=== PATIENT | female | born 1945 | race Caucasian/White ===

== ENCOUNTER 2019-10-17 15:09 | Outpatient (CLI) | payer MEDICARE, MEDICAID, SELFPAY ==
--- NOTE | ~2019-10-17 | CT_ITS ---
EXAMINATION: CT abdomen pelvis wo con DATE: 10/17/2019 16:41 INDICATION: Right-sided abdominal pain TECHNIQUE: Computed tomography (CT) of the abdomen and pelvis was performed without intravenous contr ast. Automated exposure control and iterative reconstruction technique were employed. The dose-length product was 703.21 mGy-cm. COMPARISON: 02/14/2019 FINDINGS: Negligible basilar atelectasis. Heart size is normal. No pericardial or pleural effusion. Liver, gall bladder, spleen, pancreas, bilateral adrenal glands and right kidney are normal. 4 mm nonobstructing stone at the lower pole of the left kidney. Postoperative change of likely prior partial small bowel and partial colonic resections with small bowel anastomosis in the right lower quadrant and rectosigm oid anastomosis in the deep pelvis. Additional postoperative change of prior ventral hernia mesh repa ir. No bowel obstruction. The appendix is not visualized. No pericecal inflammatory change to suggest acute appendicitis. The uterus is not identified and has likely been surgically resected. Bladder co ntinues to extend further towards the posterior right hemipelvis which may be related to prior surger y. No abnormal bladder wall thickening. No free intraperitoneal gas or fluid. No pathologically enlar ged abdominal or pelvic lymphadenopathy. S-shaped thoracolumbar scoliosis with severe spondylosis. Th ere is also severe right-sided and mild to moderate left-sided hip osteoarthritis. Moderate bilateral sacroiliac osteoarthritis. IMPRESSION: 1. No acute intra-abdominal/pelvic process. 2. 4 mm nonobstructing left renal stone. 3. Postoperative changes including likely prior partial colectomy, appendectomy, partial small bowel resection, appendectomy, hysterectomy and ventral hernia repair. Reviewed, dictated and finalized at location A. E SHOW SPECIALIST IMPRESSION: 1. No acute intra-abdominal/pelvic process. 2. 4 mm nonobstructing left renal stone. 3. Postoperative changes including likely prior partial colectomy, appendectomy , partial small bowel resection, appendectomy, hysterectomy and ventral hernia repair.
== END 2019-10-17 15:10 | disposition home or self-care (01) ==
DX: N20.0 Calculus of kidney (principal)
CPT/HCPCS: 74176

== ENCOUNTER 2020-12-14 14:29 | Emergency (ER) | payer MEDICARE, MEDICAID, SELFPAY ==
--- NOTE | ~2020-12-14 | CT_ITS ---
EXAMINATION: CT abdomen pelvis w con DATE: 12/14/2020 16:04 INDICATION: Abdominal pain, nausea and vomiting TECHNIQUE: Computed tomography (CT) of the abdomen and pelvis was performed with 100 cc Omnipaque 350 intravenous contrast. The dose-length product was 1093.67 mGy-cm. Automated exposure control and ite rative reconstruction technique were employed. COMPARISON: CT dated 10/17/2019. FINDINGS: There is dependent atelectasis. Heart size normal. There is a 3 cm hypodense partially cyst ic mass of the pancreatic head the spleen, adrenal glands and right kidney are unremarkable. Gallblad beatrice is present, although distended. There is nonobstructing 3 mm left renal stone. Nonobstructive bow el gas pattern. There are surgical changes consistent with previous colectomy, appendectomy, partial small bowel resection, hysterectomy and ventral hernia repair. Moderate atherosclerosis. No aneurysm. No lymphadenopathy. IMPRESSION: 1. Irregular shaped partially cystic mass measuring up to 3 cm at the pancreatic head. The differenti al diagnosis includes pseudocyst, intraductal papillary mucinous neoplasm (IPMN), mucinous cystic rosalio plasm (MCN), and the less common serous cystadenoma and neuroendocrine tumor. 2: 3 mm nonobstructing left renal stone. Reviewed, dictated and finalized at location A. IMPRESSION: 1. Irregular shaped partially cystic mass measuring up to 3 cm at the pancreati c head. The differential diagnosis includes pseudocyst, intraductal papillary m ucinous neoplasm (IPMN), mucinous cystic neoplasm (MCN), and the less common se ivan cystadenoma and neuroendocrine tumor. 2: 3 mm nonobstructing left renal stone.
[2020-12-14 14:31] VITALS: BP 145/92; PULSE 81; RESP 15; TEMP 36.2; O2SAT 96
--- NOTE | 2020-12-14 15:07 | ED.GENADULT ---
HPI - General Adult General Chief complaint: Nausea/Vomiting/Diarrhea Stated complaint: No Eating for Two Weeks Time Seen by Provider: 12/14/20 14:32 Source: patient Mode of arrival: ambulatory Limitations: no limitations History of Present Illness HPI narrative: Patient presents for evaluation of right abdominal pain, nausea, vomiting, diarrhea for the last 3 weeks. She has remote history of diverticulitis with colon rupture, status post colostomy placement and subsequent takedown. Her bull chain operator is Dr. Martinez with last reported EGD and colonoscopy approximately 2 years ago. She states that pain in the right side of her abdomen is fairly constant, although worse after eating. Pain radiates across her abdomen. Pain is currently 9 out of 10 in severity. She does receive fentanyl patches from pain management and also has underlying fibromyalgia for which she is prescribed Cymbalta. She states immediately after eating she experiences worsening pain. She contacted her primary doctor and went to [facility] approximately a week and a half ago. She states she had a CT abdomen pelvis at that time that was negative for bowel obstruction. She was given a prescription for Zofran which helped her in the emergency department. She has not taken prescription at home because she did not know it was the same medication. She denies any fever, chills. She does report dysuria and decreased urinary output. Her telesales supervisor is Dr Martinez. She states she has not had a bowel movement in the last 2 days but prior to that time she was experiencing diarrhea. Related Data Allergies Allergy/AdvReac Type Severity Reaction Status Date / Time duloxetine Allergy Severe Swelling Verified 12/14/20 15:15 enalapril Allergy Unknown Unknown Verified 12/14/20 15:15 erythromycin base Allergy Unknown Rash Unverified 12/14/20 15:15 Sulfa (Sulfonamide Allergy Unknown Unknown Unverified 12/14/20 15:15 Antibiotics) sulfanilamide Allergy Unknown Unknown Verified 12/14/20 15:15 venlafaxine AdvReac Unknown Other Verified 12/14/20 15:15 Review of Systems Review of Systems: Narrative: CONSTITUTIONAL: Denies fever, chills, or sweats. EYES: Denies visual changes, redness, or discharge. ENT: Denies rhinorrhea, congestion, sore throat, or otalgia. CARDIOVASCULAR: Denies chest pain, palpitations, or edema. RESPIRATORY: Denies cough or dyspnea. GASTROINTESTINAL: Reports abdominal pain, nausea, vomiting, diarrhea GENITOURINARY: Reports dysuria and decreased urinary output SKIN: Denies rash or itching. MUSCULOSKELETAL: Denies back pain, joint pain, or myalgia. NEUROLOGIC: Denies headache, numbness, dizziness, or weakness. PSYCHIATRIC: Denies anxiety or depression. [facility] Past Medical History Medical History (Updated 12/14/20 @ 17:13 by CAMRON Garvin, ) Anxiety Chronic abdominal pain Diverticulitis Fibromyalgia Hypertension Surgical History Surgical History History of colostomy History of colostomy reversal Family History Family History Mother Hypertension Family history of osteoarthritis Cerebrovascular accident Family history of Alzheimer's disease Father Family history of osteoarthritis Family history of diabetes mellitus in first degree relative Other Family history of arthritis Family history of cardiovascular disease Social History Social History Smoking status: Never smoker Alcohol intake: never Gender identity (if verbalized by the patient): Female Exam Narrative: Exam Narrative: GENERAL: Well-appearing, well-nourished, and in no acute distress. HEAD: Normocephalic, atraumatic. EYES: PERRLA and EOMI. ENT: Nares clear, no rhinorrhea or epistaxis. Mucous membranes moist. Oropharynx without tonsillar hypertrophy exudate or other lesions.
[2020-12-14] MEDS: ONDANSETRON INJ 4 MG/2 ML VIAL IV PUSH (15:22)
[2020-12-14] MEDS: FAMOTIDINE 20 MG/2 ML VIAL IV PUSH (15:22)
[2020-12-14 15:24] LABS: Basophils Absolute Auto 0.1 K/mm3 (0.0-0.1); Eosinophils Absolute Auto 0.1 K/mm3 (0-0.3); Eosinophils Percent Auto 1.1 % (0-4.4); Hematocrit 40.3 % (37.0-47.0); Hemoglobin 13.3 g/dL (12.0-15.0); Immature Granulocyte Absolute 0.04 K/mm3 (0.00-0.031); Immature Granulocyte Percent A 0.5 % (0-0.5); Lymphocytes Absolute Auto 0.92 K/mm3 (0.9-3.2); Lymphocytes Percent Auto 12.5 % (18.3-44.2); Mean Corpuscular Hemoglobin 29.6 pg (26-34); Mean Corpuscular Volume 89.8 fl (80-100); Monocytes Absolute Auto 0.7 K/mm3 (0.1-0.6); Monocytes Percent Auto 9.7 % (2.6-8.5); Neutrophils Absolute Auto 5.5 K/mm3 (1.3-6.7); Neutrophils Percent Auto 75.2 % (45.5-73.1); Platelet Count Result 344 k/mm3 (150-375); Red Blood Count 4.49 M/mm3 (4.2-5.4); Red Cell Distribution Width 14.6 % (11.5-14.5); White Blood Count 7.4 K/mm3 (4.5-10.0)
[2020-12-14 15:35] LABS: Alanine Aminotransferase 10 U/L (4-35); Albumin Level 3.6 g/dL (3.5-5.1); Alkaline Phosphatase 106 U/L (38-126); Anion Gap 9 mmol/L (8-16); Aspartate Amino Transferase 23 U/L (14-36); Bilirubin,Total 0.5 mg/dL (0.2-1.3); Blood Urea Nitrogen 8 mg/dL (7-17); Calcium 8.5 mg/dL (8.4-10.2); Carbon Dioxide 27 mmol/L (22-30); Chloride 98 mmol/L (98-107); Estimated CRCL calculation 77 ml/min; Estimated Glomerular Filt Rate > 60; Glucose 126 mg/dL (65-105); Lipase 32 U/L (23-300); Potassium 3.5 mmol/L (3.4-5.0); Prothrombin Time 13.6 Seconds (11.1-14.7); Sodium 134 mmol/L (137-145)
[2020-12-14 16:49] VITALS: BP 95/50; PULSE 68; RESP 16; O2SAT 96
[2020-12-14] MEDS: SODIUM CHLORIDE 0.9% IV 500 ML 999 ML IV CONT (17:15)
[2020-12-14 17:31] LABS: Add Urine Microscopic? YES; Appearance Urine Clear (Clear); Bilirubin Urine 1+ (Negative); Blood Urine Negative (Negative); Color Urine Yellow (Yellow); Glucose Urine UA Negative (Negative); Ketones Urine Negative (Negative); Leukocyte Esterase Ur 1+ LEU/UL (Negative); Mucus Urine Rare /lpf; Nitrate Urine Negative (Negative); Protein Urine Negative (Negative); Squamous Epithelial Cell Urine Few /hpf (Few); Urobilinogen Urine Negative mg/dL (<2.0)
[2020-12-14 17:32] LABS: Specific Grav Ur 1.047 (1.001-1.035)
[2020-12-14 17:56] VITALS: BP 111/63; PULSE 74; RESP 18; O2SAT 97
== END 2020-12-14 18:12 | disposition home or self-care (01) ==
PROVIDERS: Emergency Provider Nurse Practitioner; PCP Internal Medicine
DX: K86.9 Disease of pancreas, unspecified (principal); R11.2 Nausea with vomiting, unspecified; N20.0 Calculus of kidney; I10 Essential (primary) hypertension; M79.7 Fibromyalgia
CPT/HCPCS: 36415; 74177; 80053; 81001; 83690; 85025; 85610; 85730; 87077; 87086; 87088; 87147; 87181; 87186; 96361; 96374; 96375; 99284; J2405; J7040; Q9967

== ENCOUNTER 2022-07-10 17:17 | Emergency (ER) | payer MEDICARE, MEDICAID, SELFPAY ==
--- NOTE | ~2022-07-10 | CT_ITS ---
EXAMINATION: CTA chest PE protocol DATE: 07/10/2022 18:33 INDICATION: Chest pain with inspiration TECHNIQUE: Computed tomography angiography (CTA) of the chest was performed with 100 mL Omnipaque-350 intravenous contrast timed to evaluate the pulmonary arteries. Coronal maximum intensity projection 3D-reconstructions were created by the technologist. The dose-length product (DLP) was 872.59 mGy-cm. Automated exposure control and iterative reconstruction technique were employed. COMPARISON: None. FINDINGS: The pulmonary arteries are well-opacified. No pulmonary embolism is identified. There is mi ld dependent atelectasis. No pleural effusion or pneumothorax. No pathologically enlarged thoracic ly mph nodes are identified. The heart size is normal. There are changes of left shoulder arthroplasty. There is advanced osteoarthritis of the right glenohumeral joint. There is severe thoracic spondylosi s. IMPRESSION: 1. No pulmonary embolism or acute cardiopulmonary abnormality. Reviewed, dictated and finalized at location F. MASTER
--- NOTE | ~2022-07-10 | XR_ITS ---
XR chest 2V DATE: 07/10/2022 17:55 INDICATION: Chest pain and shortness of breath for 5 days. Hypertension. TECHNIQUE: AP and lateral views COMPARISON: 03/07/2012 PA and lateral chest FINDINGS: There is thoracic aortic dilatation and tortuosity. Thoracic aortic aneurysm is suspected. Aortic dissection is not excluded. Given the history of protracted chest pain for 5 days, consider CT A thorax with IV contrast to exclude thoracic aortic dissection or ruptured aneurysm. No hilar or mediastinal enlargement is noted otherwise. The lungs appear clear of infiltrate or conso lidation. No pleural effusion or pulmonary vascular congestion or pneumothorax. Heart size is not optimally evaluated on this examination because of magnification associated with AP projection. Prominent degenerative changes of the thoracic and lumbar spine and lumbar dextroscoliosis. There is severe osteoarthritic change at the right glenohumeral joint. Left humeral head replacement, severe narrowing and periarticular spurring at the left glenohumeral joint. IMPRESSION: Thoracic aortic dilatation and tortuosity; cannot exclude thoracic aortic dissection or r upture thoracic aortic aneurysm. Consider CTA thorax with IV contrast material Reviewed, dictated and finalized at location B. TOP PUBLISHING SPECIALIST IMPRESSION: Thoracic aortic dilatation and tortuosity; cannot exclude thoracic aortic dissection or rupture thoracic aortic aneurysm. Consider CTA thorax with IV contrast material
--- NOTE | 2022-07-10 17:19 | ECG_ITS ---
Measurements Intervals [place] Rate: 80 P: 19 UT: 163 QRS: -48 QRSD: 104 T: 17 QT: 369 QTc: 428 Interpretive Statements SINUS RHYTHM LEFT AXIS DEVIATION LOW QRS VOLTAGE IN PRECORDIAL LEADS INCOMPLETE RIGHT BUNDLE BRANCH BLOCK POOR R WAVE PROGRESSION, ANTERIOR LEADS BORDERLINE T WAVE ABNORMALITY- ANTEROLAT/INF LEADS BORDERLINE ECG NO PREVIOUS ECG AVAILABLE FOR COMPARISON Electronically Signed On 07-12-2022 16:50:01 MANAGER GRAPHIC by Trenton Silver D.O.
[2022-07-10 17:27] VITALS: BP 132/67; PULSE 94; RESP 15; TEMP 36.7; O2SAT 97
[2022-07-10 17:37] LABS: Basophils Absolute Auto 0.1 K/mm3 (0.0-0.1); Basophils Percent Auto 1.3 % (0.2-1.2); Eosinophils Absolute Auto 0.2 K/mm3 (0-0.3); Eosinophils Percent Auto 2.2 % (0-4.4); Hematocrit 43.4 % (37.0-47.0); Immature Granulocyte Absolute 0.05 K/mm3 (0.00-0.031); Immature Granulocyte Percent A 0.6 % (0-0.5); Lymphocytes Absolute Auto 1.48 K/mm3 (0.9-3.2); Lymphocytes Percent Auto 17.2 % (18.3-44.2); Mean Corpuscular HGB Conc 32.3 g/dl (32-36); Mean Corpuscular Hemoglobin 27.6 pg (26-34); Mean Corpuscular Volume 85.6 fl (80-100); Mean Platelet Volume 9.6 fl (7.4-10.4); Monocytes Absolute Auto 0.9 K/mm3 (0.1-0.6); Neutrophils Absolute Auto 5.9 K/mm3 (1.3-6.7); Neutrophils Percent Auto 68.7 % (45.5-73.1); Platelet Count Result 338 k/mm3 (150-375); Red Blood Count 5.07 M/mm3 (4.2-5.4); Red Cell Distribution Width 14.5 % (11.5-14.5); White Blood Count 8.6 K/mm3 (4.5-10.0)
[2022-07-10 17:48] LABS: Prothrombin Time 13.1 Seconds (11.1-14.7)
[2022-07-10 17:49] LABS: Alanine Aminotransferase 15 U/L (6-35); Albumin Level 4.7 g/dL (3.5-5.1); Alkaline Phosphatase 122 U/L (38-126); Anion Gap 14 mmol/L (8-16); Aspartate Amino Transferase 20 U/L (14-36); Bilirubin,Total 0.5 mg/dL (0.2-1.3); Blood Urea Nitrogen 12 mg/dL (7-17); Calcium 9.1 mg/dL (8.4-10.2); Carbon Dioxide 27 mmol/L (22-30); Chloride 99 mmol/L (98-107); Estimated CRCL calculation 78 ml/min; Estimated Glomerular Filt Rate > 60; Glucose 141 mg/dL (65-110); Lipase 39 U/L (23-300); Potassium 3.1 mmol/L (3.4-5.0); Sodium 140 mmol/L (137-145)
[2022-07-10 18:00] LABS: Troponin I < 0.012 ng/mL (0.000-0.034)
--- NOTE | 2022-07-10 18:24 | PC.NURSE ---
pt to ct via stretcher
[2022-07-10] MEDS: MORPHINE SULFATE (*CRX) 4 MG/ML INJ IV PUSH (18:41)
[2022-07-10 18:42] VITALS: BP 128/81; PULSE 89; RESP 16; O2SAT 99
[2022-07-10 19:00] VITALS: BP 129/74; PULSE 85; RESP 13; O2SAT 97
[2022-07-10 19:45] VITALS: BP 117/77; PULSE 82; RESP 19; O2SAT 97
--- NOTE | 2022-07-10 19:58 | ED.CHESTPAIN ---
HPI - Chest Pain General Chief Complaint: Chest Pain Stated Complaint: chest pains Time Seen by Provider: 07/10/22 18:07 History of Present Illness HPI narrative: Patient is a 76-year-old female who presents ER with chest pain. Ongoing for 2 to 3 days. It sharp and its pressure-like. Symptoms of chest. Worse with deep breath. Associate with coughing. No fevers or chills or sweats. No lower extremity swelling or cramping. No history of blood clots. Reports PCP told her to come in to be evaluated for pulmonary emboli. She is found no alleviating factors. Related Data Allergies Allergy/AdvReac Type Severity Reaction Status Date / Time duloxetine Allergy Severe Swelling Verified 07/10/22 18:39 enalapril Allergy Unknown Unknown Verified 07/10/22 18:39 erythromycin base Allergy Unknown Rash Verified 07/10/22 18:39 Sulfa (Sulfonamide Allergy Unknown Unknown Verified 07/10/22 18:39 Antibiotics) sulfanilamide Allergy Unknown Unknown Verified 07/10/22 18:39 venlafaxine AdvReac Unknown Other Verified 07/10/22 18:39 Review of Systems Review of Systems: All systems reviewed & are unremarkable except as noted in HPI and below Constitutional: Constitutional: Denies chills, Denies fatigue and Denies fever(s) ENT: Denies nasal congestion and Denies sore throat Cardiovascular: Cardiovascular: Reports chest pain, Denies rapid heart rate, Denies radiating jaw, neck or arm pain and Denies slow heart rate Respiratory: Respiratory: Reports cough, Denies dyspnea and Denies wheezing Gastrointestinal: Gastrointestinal: Denies abdominal pain, Denies nausea and Denies vomiting Musculoskeletal: Musculoskeletal: Denies back pain and Denies muscle cramps Neurologic: Denies syncope, Denies headache(s) and Denies numbness [facility] Past Medical History Medical History (Updated 07/10/22 @ 21:16 by Sadiq Juarez MD) Anxiety Chronic abdominal pain Diverticulitis Fibromyalgia Hypertension Surgical History Surgical History History of colostomy History of colostomy reversal Family History Family History Mother Hypertension Family history of osteoarthritis Cerebrovascular accident Family history of Alzheimer's disease Father Family history of osteoarthritis Family history of diabetes mellitus in first degree relative Other Family history of arthritis Family history of cardiovascular disease Social History Social History Smoking status: Never smoker Alcohol intake: never Gender identity (if verbalized by the patient): Female Exam Narrative: GENERAL: Well-appearing, well-nourished, and in no acute distress. HEAD: Normocephalic, atraumatic. EYES: PERRL and EOMI. ENT: Mucous membranes moist. CHEST: Clear to auscultation. No respiratory distress. Anterior chest tender with light palpation. HEART: Regular rate and rhythm. Normal peripheral pulses. ABDOMEN: Soft, nontender, nondistended. EXTREMITIES: Normal range of motion. No edema. SKIN: Warm, dry, no rash. NEURO: Alert and oriented x3. PSYCH: Normal mood and affect. Course Course Emergency Course: Patient informed results. Troponins negative x2. Pain improved with morphine. Discharge home. Vital Signs Vital signs: Vital Signs Temperature 98.1 F 07/10/22 17:27 Pulse Rate 94 07/10/22 17:27 Respiratory Rate 15 07/10/22 17:27 Blood Pressure 132/67 07/10/22 17:27 Pulse Oximetry 97 07/10/22 17:27 Temperature 98.1 F 07/10/22 17:27 Pulse Rate 80 07/10/22 20:52 Respiratory Rate 12 07/10/22 20:52 Blood Pressure 130/79 07/10/22 20:52 Pulse Oximetry 100 07/10/22 20:52 MDM - Chest Pain Lab Data Result diagrams: 07/10/22 17:31 07/10/22 17:31 Labs: Lab Results 07/10/22 07/10/22 07/10/22 Range/Unit
[2022-07-10 20:47] LABS: Troponin I < 0.012 ng/mL (0.000-0.034)
[2022-07-10 20:52] VITALS: BP 130/79; PULSE 80; RESP 12; O2SAT 100
[2022-07-10 21:50] VITALS: BP 141/78; PULSE 80; RESP 11; O2SAT 97
== END 2022-07-10 21:51 | disposition home or self-care (01) ==
PROVIDERS: Emergency Provider Emergency Medicine; PCP Internal Medicine
DX: R07.89 Other chest pain (principal); I10 Essential (primary) hypertension
CPT/HCPCS: 36415; 71046; 71275; 80053; 83690; 84484; 85025; 85610; 85730; 93005; 96374; 99284; J2270; Q9967

== ENCOUNTER 2022-08-07 15:12 | Emergency (ER) | payer MEDICARE, MEDICAID, SELFPAY ==
[2022-08-07] VITALS (22 sets, daily range): BP systolic 135–158; BP diastolic 74–131; PULSE 85–88; RESP 16–18; TEMP 36.6–36.7; O2SAT 96–100
--- NOTE | ~2022-08-07 | CT_ITS ---
EXAMINATION: CT abdomen pelvis w con DATE: 08/07/2022 20:15 INDICATION: Lower abdominal pain TECHNIQUE: Computed tomography (CT) of the abdomen and pelvis was performed with 100 mL Omnipaque-350 intravenous contrast. Automated exposure control and iterative reconstruction technique were employe d. The dose-length product was 1225.74 mGy-cm. COMPARISON: None FINDINGS: Mild atelectasis in the bilateral lower lungs. Heart size is normal. No pericardial or pleural effusi on. Diffuse hepatic steatosis with more focal fat at the ligamentum teres and focal sparing along the gallbladder fossa. Gallbladder, spleen, pancreas and bilateral adrenal glands are normal. Bilateral nonobstructing nephrolithiasis measuring 3 mm at the lower pole of the left kidney and 2 mm at the lo wer pole of the right kidney. Subcentimeter low-attenuation bilateral renal cysts. No hydronephrosis. Status post appendectomy and likely prior partial small bowel resection with anastomotic suture line likely loop of small bowel in the right lower quadrant. Ventral hernia mesh repair. No bowel obstruc tion. Bladder is normal. The uterus is not identified and has likely been surgically resected. Likely prior partial distal colectomy with anastomotic suture line at the rectum. No free intraperitoneal g as or fluid. No pathologically enlarged abdominal or pelvic lymphadenopathy. Moderate lumbar dextrosc oliosis with severe thoracic and lumbar spondylosis. Severe osteoarthritis at the right hip. IMPRESSION: 1. Bilateral nonobstructing nephrolithiasis. No acute intra-abdominal/pelvic process. 2. Postoperative changes including likely prior partial colectomy, appendectomy, partial small bowel resection, appendectomy, hysterectomy and ventral hernia repair. Reviewed, dictated and finalized at location A. CH LEAD IMPRESSION: 1. Bilateral nonobstructing nephrolithiasis. No acute intra-abdominal/pelvic pr ocess. 2. Postoperative changes including likely prior partial colectomy, appendectomy , partial small bowel resection, appendectomy, hysterectomy and ventral hernia repair.
[2022-08-07 17:32] LABS: Basophils Absolute Auto 0.1 K/mm3 (0.0-0.1); Basophils Percent Auto 1.1 % (0.2-1.2); Eosinophils Percent Auto 0.4 % (0-4.4); Hematocrit 43.4 % (37.0-47.0); Hemoglobin 14.3 g/dL (12.0-15.0); Immature Granulocyte Absolute 0.09 K/mm3 (0.00-0.031); Lymphocytes Absolute Auto 1.33 K/mm3 (0.9-3.2); Lymphocytes Percent Auto 14.1 % (18.3-44.2); Mean Corpuscular HGB Conc 32.9 g/dl (32-36); Mean Corpuscular Hemoglobin 27.8 pg (26-34); Mean Corpuscular Volume 84.4 fl (80-100); Mean Platelet Volume 9.2 fl (7.4-10.4); Monocytes Absolute Auto 0.7 K/mm3 (0.1-0.6); Monocytes Percent Auto 7.3 % (2.6-8.5); Neutrophils Absolute Auto 7.2 K/mm3 (1.3-6.7); Neutrophils Percent Auto 76.1 % (45.5-73.1); Platelet Count Result 331 k/mm3 (150-375); Red Blood Count 5.14 M/mm3 (4.2-5.4); Red Cell Distribution Width 14.4 % (11.5-14.5); White Blood Count 9.4 K/mm3 (4.5-10.0)
[2022-08-07 17:41] LABS: Alanine Aminotransferase 14 U/L (6-35); Albumin Level 4.7 g/dL (3.5-5.1); Alkaline Phosphatase 117 U/L (38-126); Anion Gap 13 mmol/L (8-16); Aspartate Amino Transferase 24 U/L (14-36); Bilirubin,Total 0.9 mg/dL (0.2-1.3); Blood Urea Nitrogen 12 mg/dL (7-17); Calcium 9.1 mg/dL (8.4-10.2); Carbon Dioxide 24 mmol/L (22-30); Chloride 101 mmol/L (98-107); Estimated CRCL calculation 95 ml/min; Estimated Glomerular Filt Rate > 60; Glucose 107 mg/dL (65-110); Lipase 33 U/L (23-300); Potassium 3.6 mmol/L (3.4-5.0); Sodium 138 mmol/L (137-145)
[2022-08-07 19:17] LABS: Add Urine Microscopic? YES; Appearance Urine Clear (Clear); Bilirubin Urine 2+ (Negative); Blood Urine Negative (Negative); Color Urine Yellow (Yellow); Glucose Urine UA Negative (Negative); Ketones Urine 2+ mg/dL (Negative); Leukocyte Esterase Ur Negative LEU/UL (Negative); Nitrate Urine Negative (Negative); Protein Urine Trace mg/dL (Negative); Specific Grav Ur 1.025 (1.001-1.035); Urobilinogen Urine 0.2 mg/dL (<2.0)
[2022-08-07 19:31] LABS: Mucus Urine Few /lpf; Squamous Epithelial Cell Urine Few /hpf (Few)
--- NOTE | 2022-08-07 19:31 | ED.ABDPAIN ---
HPI - Abdominal Pain General Chief Complaint: Abdominal Pain <BELLE Sanches Last Filed: 08/07/22 21:58> Stated Complaint: stomach pain, n/v/ <Sonya Monroy PA-C - Last Filed: 08/07/22 21:58> Time Seen by Provider: 08/07/22 18:25 <BELLE Sanches Last Filed: 08/07/22 21:58> Source: patient <BELLE Sanches Last Filed: 08/07/22 21:58> Mode of arrival: ambulatory <BELLE Sanches Last Filed: 08/07/22 21:58> Limitations: no limitations <BELLE Sanches Last Filed: 08/07/22 21:58> History of Present Illness HPI narrative: This is a 76 year old female that presents to the ER for abdominal pain ongoing over the last 4 days. Reports the pain is sharp and intermittent in nature. Does report history of chronic abdominal pain/problems. She uses a Fentanyl patch daily for chronic pain due to her fibromyalgia. Reports associated nausea and diarrhea. Reports dysuria. Denies fever, vomiting, hematochezia, or hematuria. <BELLE Sanches Last Filed: 08/07/22 21:58> Related Data Allergies/Adverse Reactions: Allergies Allergy/AdvReac Type Severity Reaction Status Date / Time duloxetine Allergy Severe Swelling Verified 07/10/22 18:39 enalapril Allergy Unknown Unknown Verified 07/10/22 18:39 erythromycin base Allergy Unknown Rash Verified 07/10/22 18:39 Sulfa (Sulfonamide Allergy Unknown Unknown Verified 07/10/22 18:39 Antibiotics) sulfanilamide Allergy Unknown Unknown Verified 07/10/22 18:39 venlafaxine AdvReac Unknown Other Verified 07/10/22 18:39 <BELLE Sanches Last Filed: 08/07/22 21:58> Review of Systems Review of Systems: CONSTITUTIONAL: Denies fever EYES: Denies redness, or discharge. ENT: Denies rhinorrhea, congestion, sore throat, or otalgia. CARDIOVASCULAR: Denies chest pain or edema. RESPIRATORY: Denies dyspnea. GASTROINTESTINAL: Reports abdominal pain, nausea, and diarrhea. Denies vomiting GENITOURINARY: Reports dysuria. Denies hematuria. SKIN: Denies rash MUSCULOSKELETAL: Reports joint pain, and myalgia. PSYCHIATRIC: Reports anxiety <Sonya Monroy PA-C - Last Filed: 08/07/22 21:58> All systems reviewed & are unremarkable except as noted in HPI and below <Sonya Monroy PA-C - Last Filed: 08/07/22 21:58> [facility] Past Medical History Medical History: Medical History (Updated 08/08/22 @ 00:00 by [facility] Daemon) Anxiety Chronic abdominal pain Diverticulitis Fibromyalgia Hypertension <Sonya Monroy PA-C - Last Filed: 08/07/22 21:58> Surgical History Surgical History: Surgical History History of colostomy History of colostomy reversal <Sonya Monroy PA-C - Last Filed: 08/07/22 21:58> Family History Family History: Family History Mother Hypertension Family history of osteoarthritis Cerebrovascular accident Family history of Alzheimer's disease Father Family history of osteoarthritis Family history of diabetes mellitus in first degree relative Other Family history of arthritis Family history of cardiovascular disease <BELLE Sanches Last Filed: 08/07/22 21:58> Social History Social History: Social History Smoking status: Never smoker Alcohol intake: never Gender identity (if verbalized by the patient): Female <BELLE Sanches Last Filed: 08/07/22 21:58> Exam Narrative: GENERAL: Well-appearing, well-nourished, and in no acute distress. HEAD: Normocephalic, atraumatic. EYES: EOMI. ENT: Mucous membranes moist. Oropharynx without tonsillar hypertrophy exudate or other lesions. CHEST: Clear to auscultation. No respiratory distress. No wheezes rales or rhonchi HEART: Regular rate and rhythm. No murmur heard. Normal peripheral pulses. ABDOMEN: Soft, nondist
[2022-08-07] MEDS: ONDANSETRON INJ 4 MG/2 ML VIAL IV PUSH (19:58)
[2022-08-07] MEDS: PANTOPRAZOLE SODIUM IV 40 MG VIAL IV PUSH (19:58)
--- NOTE | 2022-08-07 20:26 | PC.NURSE ---
urinary output documented on wrong chart. Patient with no urinary output
[2022-08-07] MEDS: SODIUM CHLORIDE 0.9% IV 500 ML 999 ML IV CONT (20:56)
== END 2022-08-07 22:07 | disposition home or self-care (01) ==
PROVIDERS: Emergency Medicine; Emergency Provider Emergency Medicine; PCP Internal Medicine
DX: R10.9 Unspecified abdominal pain (principal); I10 Essential (primary) hypertension; M79.7 Fibromyalgia; N20.0 Calculus of kidney
CPT/HCPCS: 36415; 74177; 80053; 81001; 83690; 85025; 96361; 96365; 96375; 99284; C9113; J0131; J2405; J7040; Q9967

== ENCOUNTER 2022-12-08 14:49 | Outpatient (CLI) | payer MEDICARE, MEDICAID, SELFPAY ==
--- NOTE | ~2022-12-08 | CT_ITS ---
EXAMINATION: CT diagnostic chest wo con DATE: 12/08/2022 15:12 INDICATION: Dyspnea with exertion TECHNIQUE: Computed tomography (CT) of the chest was performed without intravenous contrast. The dose -length product was 542.41 mGy-cm. Automated exposure control and iterative reconstruction technique were employed. COMPARISON: None FINDINGS: There are focal groundglass opacities in the right upper and lower lobe. There is a 3 mm no dule left mid thorax, coronal image 58. No other pulmonary nodules. No endobronchial lesions. No pneu mothorax. There is atherosclerosis of the aorta. Cardiomegaly. No significant pleural or pericardial effusion. No thoracic lymphadenopathy. There is severe thoracic spondylosis. There is a left shoulder arthroplasty. IMPRESSION: 1. Focal groundglass opacities of the right upper and lower lobe which may represent small airway dis ease or post infectious/inflammatory process. 2: Small 3 mm pulmonary nodule left mid thorax, most likely benign. Reviewed, dictated and finalized at location A. IMPRESSION: 1. Focal groundglass opacities of the right upper and lower lobe which may repr esent small airway disease or post infectious/inflammatory process. 2: Small 3 mm pulmonary nodule left mid thorax, most likely benign.
== END 2022-12-08 14:50 | disposition home or self-care (01) ==
PROVIDERS: PCP Family Medicine Sports Medicine; Visit Provider Internal Medicine Pulmonary Disease
DX: R91.1 Solitary pulmonary nodule (principal); R91.8 Other nonspecific abnormal finding of lung field; R06.09 Other forms of dyspnea; R05.9 Cough, unspecified; M32.13 Lung involvement in systemic lupus erythematosus; R94.2 Abnormal results of pulmonary function studies; D89.9 Disorder involving the immune mechanism, unspecified; T78.40XS Allergy, unspecified, sequela
CPT/HCPCS: 71250

== ENCOUNTER 2023-05-21 12:04 | Emergency (ER) | payer MEDICARE, MEDICAID, SELFPAY ==
--- NOTE | ~2023-05-21 | XR_ITS ---
EXAMINATION: XR chest 2V 05/21/2023 13:36 INDICATION: Midsternal chest pain PROCEDURE: 2 view chest COMPARISON: Comparison to multiple prior studies sequentially, with oldest reviewed study dated 01/2006. FINDINGS: The lungs are clear. The cardiomediastinal silhouette is within normal limits. There are no pleural effusions. There is no pneumothorax suspected. IMPRESSION: 1: NO ACUTE CARDIOPULMONARY DISEASE. Reviewed, dictated and finalized at location B.
--- NOTE | ~2023-05-21 | CT_ITS ---
EXAMINATION: CTA chest PE protocol DATE: 05/21/2023 14:50 CDT INDICATION: Chest pain TECHNIQUE: Computed tomographic angiography (CTA) of the chest was performed with 100 mL Omnipaque-35 0 intravenous contrast. The dose-length product was 798.84 mGy-cm. Maximum intensity projection 3D-re constructions of the aorta and other arteries were constructed by the technologist on a separate work station. COMPARISON: CT dated 12/08/2022. FINDINGS: There is technically adequate without evidence for pulmonary embolism. No significant pleur al or pericardial effusion. No thoracic lymphadenopathy. There is atherosclerosis of the aorta and co ronary arteries. Cardiomegaly. The upper abdomen is unremarkable. There is linear subsegmental atelec tasis in the right upper lobe, lingula and lower lobes. No pneumothorax. No endobronchial lesions. Se tu thoracic spondylosis with fusion at T4-5. IMPRESSION: 1. Linear subsegmental atelectasis bilaterally. 2: No evidence for pulmonary embolism. Reviewed, dictated and finalized at location B.
--- NOTE | 2023-05-21 12:07 | ECG_ITS ---
Measurements Intervals [place] Rate: 75 P: 4 CT: 162 QRS: -40 QRSD: 102 T: -9 QT: 370 QTc: 414 Interpretive Statements SINUS RHYTHM LEFT AXIS DEVIATION LOW QRS VOLTAGE IN PRECORDIAL LEADS LEFT VENTRICULAR HYPERTROPHY POOR R WAVE PROGRESSION, ANTERIOR LEADS BORDERLINE T WAVE ABNORMALITY- ANTEROLAT/INF LEADS BASELINE ARTIFACT- I, II, III, AVR, AVL, AVF, V4-V6 BORDERLINE ECG COMPARED TO ECG 07/10/2022 17:24:55 NO SIGNIFICANT CHANGES Electronically Signed On 05-21-2023 12:30:27 CDT by Trenton Silver D.O.
[2023-05-21 12:13] VITALS: BP 138/74; PULSE 75; RESP 21; TEMP 36.6; O2SAT 94
[2023-05-21 12:42] LABS: Basophils Absolute Auto 0.1 K/mm3 (0.0-0.1); Basophils Percent Auto 1.4 % (0.2-1.2); Eosinophils Absolute Auto 0.1 K/mm3 (0-0.3); Eosinophils Percent Auto 2.1 % (0-4.4); Hematocrit 41.9 % (37.0-47.0); Hemoglobin 13.1 g/dL (12.0-15.0); Immature Granulocyte Absolute 0.06 K/mm3 (0.00-0.031); Immature Granulocyte Percent A 0.9 % (0-0.5); Lymphocytes Absolute Auto 1.07 K/mm3 (0.9-3.2); Lymphocytes Percent Auto 16.3 % (18.3-44.2); Mean Corpuscular HGB Conc 31.3 g/dl (32-36); Mean Corpuscular Volume 89.5 fl (80-100); Mean Platelet Volume 9.4 fl (7.4-10.4); Monocytes Absolute Auto 0.6 K/mm3 (0.1-0.6); Monocytes Percent Auto 9.4 % (2.6-8.5); Neutrophils Absolute Auto 4.6 K/mm3 (1.3-6.7); Neutrophils Percent Auto 69.9 % (45.5-73.1); Platelet Count Result 272 k/mm3 (150-375); Red Blood Count 4.68 M/mm3 (4.2-5.4); Red Cell Distribution Width 13.7 % (11.5-14.5); White Blood Count 6.6 K/mm3 (4.5-10.0)
[2023-05-21 12:51] LABS: Alanine Aminotransferase 14 U/L (6-35); Albumin Level 4.4 g/dL (3.5-5.1); Alkaline Phosphatase 87 U/L (38-126); Anion Gap 6 mmol/L (8-16); Aspartate Amino Transferase 22 U/L (14-36); Bilirubin,Total 0.7 mg/dL (0.2-1.3); Blood Urea Nitrogen 10 mg/dL (7-17); Calcium 9.1 mg/dL (8.4-10.2); Carbon Dioxide 30 mmol/L (22-30); Chloride 101 mmol/L (98-107); Estimated CRCL calculation 77 ml/min; Estimated Glomerular Filt Rate > 60; Glucose 135 mg/dL (65-110); Lipase 26 U/L (23-300); Potassium 4.1 mmol/L (3.4-5.0); Sodium 137 mmol/L (137-145)
[2023-05-21 12:53] LABS: INR 0.9; Prothrombin Time 12.3 Seconds (11.1-14.7)
[2023-05-21 12:54] LABS: Partial Thromboplastin Time 25.1 SECONDS (22.3-36.8)
[2023-05-21 13:05] LABS: Troponin I < 0.012 ng/mL (0.000-0.034)
--- NOTE | 2023-05-21 13:33 | ED.GENADULT ---
HPI - General Adult General Chief complaint: Chest Pain Stated complaint: chest pain Time Seen by Provider: 05/21/23 13:07 History of Present Illness HPI narrative: Leighann Mcknight is a 77 y/o female who presents with reports of having a productive cough of cruz sputum with mid chest pain through to back for the past 3 days. She states that she feels like she has a bad cold or pneumonia. Denies any fever/chills/ no hx of blood clots she does not take any anticoagulants. She stats that she has a hx of a pulmonary nodule and she follows with pulmonology for that. Denies any known fever/chills/ abdominal pain/ nausea/vomiting. Related Data Allergies Allergy/AdvReac Type Severity Reaction Status Date / Time duloxetine Allergy Severe Swelling Verified 05/21/23 13:52 enalapril Allergy Unknown Unknown Verified 05/21/23 13:52 erythromycin base Allergy Unknown Rash Verified 05/21/23 13:52 Sulfa (Sulfonamide Allergy Unknown Unknown Verified 05/21/23 13:52 Antibiotics) sulfanilamide Allergy Unknown Unknown Verified 05/21/23 13:52 venlafaxine AdvReac Unknown Other Verified 05/21/23 13:52 Review of Systems Review of Systems: CONSTITUTIONAL: Denies fever, chills, or sweats. EYES: Denies visual changes, redness, or discharge. ENT: Denies rhinorrhea, congestion, sore throat, or otalgia. CARDIOVASCULAR: Denies chest pain, palpitations, or edema. RESPIRATORY: Reports of productive cough of cruz sputum for 3 days along with new chest pain in the middle chest to her back. GASTROINTESTINAL: Denies abdominal pain, nausea, vomiting, or diarrhea. GENITOURINARY: Denies dysuria or hematuria. SKIN: Denies rash or itching. MUSCULOSKELETAL: Denies back pain, joint pain, or myalgia. NEUROLOGIC: Denies headache, numbness, dizziness, or weakness. PSYCHIATRIC: Denies anxiety or depression. [facility] Past Medical History Medical History Anxiety Chronic abdominal pain Diverticulitis Fibromyalgia Hypertension Surgical History Surgical History History of colostomy History of colostomy reversal Family History Family History Mother Hypertension Family history of osteoarthritis Cerebrovascular accident Family history of Alzheimer's disease Father Family history of osteoarthritis Family history of diabetes mellitus in first degree relative Other Family history of arthritis Family history of cardiovascular disease Social History Social History Smoking status: Never smoker Alcohol intake: never Gender identity (if verbalized by the patient): Female Exam Narrative: GENERAL: Well-appearing, well-nourished, and in no acute distress. HEAD: Normocephalic, atraumatic. EYES: PERRLA and EOMI. ENT: Nares clear, no rhinorrhea or epistaxis. Mucous membranes moist. Oropharynx without tonsillar hypertrophy exudate or other lesions. NECK: Supple. No adenopathy or masses. No carotid bruits or JVD CHEST: Diminished in the right lower posterior lobe, No respiratory distress. No wheezes rales or rhonchi HEART: Regular rate and rhythm. No murmur heard. Normal peripheral pulses. ABDOMEN: Soft, nontender, nondistended, normal active bowel sounds. EXTREMITIES: Normal range of motion. No edema. SKIN: Warm, dry, no rash. NEURO: No focal deficits. Alert and oriented x3. PSYCH: Normal mood and affect. Course Vital Signs Vital signs: Vital Signs Temperature 36.6 C 05/21/23 12:13 Pulse Rate 75 05/21/23 12:13 Respiratory Rate 21 H 05/21/23 12:13 Blood Pressure 138/74 05/21/23 12:13 Pulse Oximetry 94 05/21/23 12:13 Oxygen Delivery Room Air 05/21/23 12:13 Temperature 36.6 C 05/21/23 12:13 Pulse Rate 88 05/21/23 17:41 Respiratory Rate 18 05/21/23 17:41 Blood Pressure 155/80 H 05/21/23 17:41 Pulse Oxime
[2023-05-21 15:47] LABS: Influenza A QL RT-PCR Negative (Negative); Influenza B QL RT-PCR Negative (Negative); RSV RNA, RT-PCR Negative (Negative); SARS-CoV-2 RNA PCR Negative (Negative)
[2023-05-21 15:53] LABS: Troponin I < 0.012 ng/mL (0.000-0.034)
[2023-05-21] MEDS: ASPIRIN 81 MG CHEWABLE TABLET 324 MG PO (16:36)
[2023-05-21 17:41] VITALS: BP 155/80; PULSE 88; RESP 18; O2SAT 97
== END 2023-05-21 17:42 | disposition home or self-care (01) ==
PROVIDERS: Emergency Medicine; Emergency Provider Nurse Practitioner Family; PCP Family Medicine Sports Medicine
DX: R05.9 Cough, unspecified (principal); Z20.822 Contact with and (suspected) exposure to COVID-19; M79.7 Fibromyalgia; I10 Essential (primary) hypertension; R07.9 Chest pain, unspecified
CPT/HCPCS: 36415; 71046; 71275; 80053; 83690; 84484; 85025; 85610; 85730; 87637; 93005; 99284; A9270; Q9967

== ENCOUNTER 2023-10-26 10:32 | Emergency (ER) | payer MEDICARE, MEDICAID, SELFPAY ==
--- NOTE | ~2023-10-26 | CT_ITS ---
EXAMINATION: CT abdomen pelvis w con INDICATION: Right-sided abdominal pain TECHNIQUE: Computed tomographic images of the abdomen and pelvis were obtained after the administrati on of 100 cc of Omnipaque 350 intravenous contrast. The dose-length product (DLP) was 1157.86 mGy-cm. Automated exposure control and iterative reconstruction technique were employed. COMPARISON: 08/07/2022 FINDINGS: Minimal dependent atelectasis is present in the lung bases. The heart size is normal. The l iver is diffusely low in attenuation when compared with the spleen, consistent with hepatic steatosis . The spleen, pancreas, gallbladder, and adrenal glands are normal. There is a [address] one of the left kidney lower pole. There is a 3 mm nonobstructing stone of the right kidney lower jaz e. Hypoattenuating lesions in the kidneys, measuring up to 6 mm on the right, are too small to charac terize but likely represent cysts. No pathologically enlarged abdominal or pelvic lymph nodes are lemuel ntified. No free intraperitoneal gas or evidence of bowel obstruction. There are surgical changes of the large bowel and rectum. Mesh ventral hernia repair is noted. There is severe lumbar spondylosis. Lumbar dextroscoliosis is again noted. IMPRESSION: 1. No CT correlate for the patient's symptoms. 2. Nonobstructing nephrolithiasis. Reviewed, dictated and finalized at location L. [employer]
[2023-10-26 10:38] VITALS: BP 141/68; PULSE 83; RESP 20; TEMP 36.9; O2SAT 96
--- NOTE | 2023-10-26 12:46 | ED.GENADULT ---
HPI - General Adult General Chief complaint: Unspecified <Kevin Kincaid APRN - Last Filed: 10/26/23 14:54> Stated complaint: sick , joint pain <Kevin Kincaid APRN - Last Filed: 10/26/23 14:54> Time Seen by Provider: 10/26/23 12:45 <Kevin Kincaid APRN - Last Filed: 10/26/23 14:54> MSE in triage was performed at 12:45 p.m. Leighann is a 77-year-old female patient presenting to the ER today with complaints of joint pain and muscle pain all over. She reports she does have a history of fibromyalgia and lupus. Has felt feverish as well. Denies any increase in shortness of breath or chest pain. States overall she just feels ill. GENERAL: Well-appearing, morbidly obese, and in no acute distress. HEAD: Normocephalic, atraumatic. CHEST: Clear to auscultation. No respiratory distress. HEART: Regular rate and rhythm. NEURO: Alert and oriented x4. Musculoskeletal:No deformity, generalized muscle aches/joint pain from head to toe Patient screened in triage and initial orders placed. Additional care and disposition to be based upon diagnostic testing and treatment. Labs, COVID, flu, RSV, and urinalysis was ordered. <Kevin Kincaid APRN - Last Filed: 10/26/23 14:54> Source: patient <Kevin Kincaid APRN - Last Filed: 10/26/23 14:54> Mode of arrival: ambulatory <Kevin Kincaid APRN - Last Filed: 10/26/23 14:54> Limitations: no limitations <Kevin Kincaid APRN - Last Filed: 10/26/23 14:54> History of Present Illness HPI narrative: 77-year-old female presenting with joint pain, chronic abdominal pain, chronic poor appetite. Patient states that she is here at her son's suggestion. She states that she is not concerned about anything acutely but her family is concerned that she does not eat enough. States that she suffers from chronically poor appetite. <Nuvia Phillips MD - Last Filed: 10/27/23 17:06> Related Data Allergies/adverse reactions: Allergies Allergy/AdvReac Type Severity Reaction Status Date / Time duloxetine Allergy Severe Swelling Verified 05/21/23 13:52 enalapril Allergy Unknown Unknown Verified 05/21/23 13:52 erythromycin base Allergy Unknown Rash Verified 05/21/23 13:52 Sulfa (Sulfonamide Allergy Unknown Unknown Verified 05/21/23 13:52 Antibiotics) sulfanilamide Allergy Unknown Unknown Verified 05/21/23 13:52 venlafaxine AdvReac Unknown Other Verified 05/21/23 13:52 <Kevin Kincaid APRN - Last Filed: 10/26/23 14:54> Review of Systems Review of Systems: Pertinent positives per HPI. Patient denies any rash, headache, visual changes, dizziness, cough, runny nose, sore throat, shortness of breath, chest pain, palpitations, nausea, vomiting, diarrhea, constipation, abdominal pain, or any urinary issues. <Kevin Kincaid APRN - Last Filed: 10/26/23 14:54> All systems reviewed & are unremarkable except as noted in HPI and below <Nuvia Phillips MD - Last Filed: 10/27/23 17:06> [facility] Past Medical History Medical History: Medical History Anxiety Chronic abdominal pain Diverticulitis Fibromyalgia Hypertension <Kevin Kincaid APRN - Last Filed: 10/26/23 14:54> Surgical History Surgical History: Surgical History History of colostomy History of colostomy reversal <Kevin Kincaid APRN - Last Filed: 10/26/23 14:54> Family History Family History: Family History Mother Hypertension Family history of osteoarthritis Cerebrovascular accident Family history of Alzheimer's disease Father Family history of osteoarthritis Family history of diabetes mellitus in first degree relative Other Family history of arthritis Family history of cardiovascular disease <Kevin Kincaid APRN - Last Filed:
[2023-10-26 13:09] LABS: Basophils Absolute Auto 0.1 K/mm3 (0.0-0.1); Basophils Percent Auto 1.1 % (0.2-1.2); Eosinophils Absolute Auto 0.2 K/mm3 (0-0.3); Eosinophils Percent Auto 2.4 % (0-4.4); Hematocrit 47.6 % (37.0-47.0); Hemoglobin 15.2 g/dL (12.0-15.0); Immature Granulocyte Absolute 0.04 K/mm3 (0.00-0.031); Immature Granulocyte Percent A 0.6 % (0-0.5); Lymphocytes Percent Auto 17.7 % (18.3-44.2); Mean Corpuscular HGB Conc 31.9 g/dl (32-36); Mean Corpuscular Hemoglobin 28.4 pg (26-34); Mean Platelet Volume 9.7 fl (7.4-10.4); Monocytes Absolute Auto 0.6 K/mm3 (0.1-0.6); Neutrophils Absolute Auto 4.3 K/mm3 (1.3-6.7); Neutrophils Percent Auto 69.2 % (45.5-73.1); Platelet Count Result 323 k/mm3 (150-375); Red Blood Count 5.35 M/mm3 (4.2-5.4); Red Cell Distribution Width 15.2 % (11.5-14.5); White Blood Count 6.2 K/mm3 (4.5-10.0)
[2023-10-26 13:20] LABS: Alanine Aminotransferase 25 U/L (6-35); Albumin Level 4.7 g/dL (3.5-5.1); Alkaline Phosphatase 115 U/L (38-126); Anion Gap 13 mmol/L (8-16); Aspartate Amino Transferase 36 U/L (14-36); Bilirubin,Total 0.8 mg/dL (0.2-1.3); Blood Urea Nitrogen 14 mg/dL (7-17); CRP 0.9 mg/dL (<1.0); Calcium 9.3 mg/dL (8.4-10.2); Carbon Dioxide 24 mmol/L (22-30); Chloride 103 mmol/L (98-107); Creatine Kinase 69 U/L (30-135); Estimated CRCL calculation 72 ml/min; Estimated Glomerular Filt Rate > 60; Glucose 229 mg/dL (65-110); Lipase 47 U/L (23-300); Potassium 3.4 mmol/L (3.4-5.0); Sodium 140 mmol/L (137-145)
[2023-10-26 14:10] LABS: Influenza A QL RT-PCR Negative (Negative); Influenza B QL RT-PCR Negative (Negative); RSV RNA, RT-PCR Negative (Negative); SARS-CoV-2 RNA PCR Negative (Negative)
[2023-10-26 14:22] LABS: Erythrocyte Sedimentation Rate 2 mm/hr (0-20)
[2023-10-26 16:03] VITALS: BP 126/70; PULSE 86; RESP 20; O2SAT 98
[2023-10-26 16:31] LABS: Appearance Urine Clear (Clear); Bilirubin Urine Negative (Negative); Blood Urine Negative (Negative); Color Urine Yellow (Yellow); Glucose Urine UA Negative (Negative); Ketones Urine Negative (Negative); Leukocyte Esterase Ur Negative LEU/UL (Negative); Nitrate Urine Negative (Negative); Protein Urine Negative (Negative)
[2023-10-26 16:32] LABS: Add Urine Microscopic? NO; Specific Grav Ur 1.039 (1.001-1.035)
== END 2023-10-26 18:36 | disposition home or self-care (01) ==
PROVIDERS: Nurse Practitioner Family; Emergency Provider Emergency Medicine; PCP Family Medicine Sports Medicine
DX: R63.0 Anorexia (principal); R10.9 Unspecified abdominal pain; G89.29 Other chronic pain; Z20.822 Contact with and (suspected) exposure to COVID-19; I10 Essential (primary) hypertension; M79.7 Fibromyalgia; E66.01 Morbid (severe) obesity due to excess calories; Z68.36 Body mass index [BMI] 36.0-36.9, adult; N20.0 Calculus of kidney
CPT/HCPCS: 36415; 74177; 80053; 81003; 82550; 83690; 85025; 85652; 86140; 87637; 99284; Q9967

== ENCOUNTER 2024-04-14 10:21 | Emergency (ER) | payer MEDICARE, MEDICAID, SELFPAY ==
[2024-04-14] VITALS (22 sets, daily range): BP systolic 131–158; BP diastolic 79–97; PULSE 65–90; RESP 12–28; TEMP 36.6–37.1; O2SAT 95–100
--- NOTE | ~2024-04-14 | XR_ITS ---
EXAMINATION: XR chest 2V DATE: 04/14/2024 12:42 INDICATION: Shortness of breath and weakness TECHNIQUE: frontal and lateral views of the chest were obtained. COMPARISON: Chest radiograph and CT dated 05/21/2023 FINDINGS: Small lung volumes. Unchanged mild linear discoid atelectasis/scarring at the medial right upper lung zone. Distal mild streaky bibasilar atelectasis. No other air space opacities,, pulmonary edema, ple ural effusion or pneumothorax. Heart size is normal. Tortuous thoracic aorta. Mild lower thoracic lev ocurvature and mild/moderate upper lumbar dextroscoliosis with severe spondylosis. Left shoulder arth roplasty. Severe right glenohumeral osteoarthritis. IMPRESSION: 1. Small lung volume with mild bibasilar atelectasis. Reviewed, dictated and finalized at location A.
--- NOTE | ~2024-04-14 | CT_ITS ---
EXAMINATION: CT abdomen pelvis w con DATE: 04/14/2024 14:28 INDICATION: Nonlocalized abdominal pain. TECHNIQUE: Computed tomography (CT) of the abdomen and pelvis was performed with 100 mL Omnipaque 350 intravenous contrast. Automated exposure control and iterative reconstruction technique were employe d. The dose-length product was 1404.30 mGy-cm. COMPARISON: CT abdomen and pelvis 10/26/2023 FINDINGS: The visualized portions of the lung bases demonstrate mild atelectasis. No pleural effusion . The heart size is normal. No pericardial effusion. The liver, gallbladder, spleen, pancreas, and ad renal glands are normal. There is cortical thinning of the kidneys. There are cysts in the kidneys me asuring up to 7 mm on the right. There is a 2 mm stone in right kidney. There is a 3 mm stone in left kidney. There is an anastomosis in the rectum. There are no dilated loops of bowel. The appendix is not visualized. There are changes of ventral hernia repair. There are no pathologically enlarged lymp h nodes. There is no free intraperitoneal fluid. There is dextroscoliosis and severe spondylosis of t horacolumbar spine. IMPRESSION: 1. No specific etiology for the patient's symptoms. Reviewed, dictated and finalized at location A.
--- NOTE | 2024-04-14 10:47 | ECG_ITS ---
Test Date: 2024-04-14 10:52:19 Measurements Intervals [place] Rate: 67 P: 18 PA: 184 QRS: -45 QRSD: 99 T: -13 QT: 381 QTc: 404 Interpretive Statements SINUS RHYTHM LEFT ANTERIOR FASCICULAR BLOCK [QRS AXIS <= -45, QR IN I, RS IN II] MODERATE VOLTAGE CRITERIA FOR LVH, CONSIDER NORMAL VARIANT [MEETS CRITERIA IN ONE OF: R(aVL), S(V1), R(V5), R(V5/V6)+S(V1)] POSSIBLE ANTERIOR MYOCARDIAL INFARCTION , OF INDETERMINATE AGE [30 ms Q WAVE IN V3/V4, OR R < 0.2 mV IN V4] No previous ECG available for comparison Electronically Signed On 04-15-2024 10:32:17 CDT by Gillian Glaser M.D.
[2024-04-14 12:36] LABS: Basophils Absolute Auto 0.1 K/mm3 (0.0-0.1); Eosinophils Absolute Auto 0.1 K/mm3 (0-0.3); Eosinophils Percent Auto 1.7 % (0-4.4); Hemoglobin 14.7 g/dL (12.0-15.0); Immature Granulocyte Absolute 0.08 K/mm3 (0.00-0.031); Immature Granulocyte Percent A 1.1 % (0-0.5); Lymphocytes Absolute Auto 1.29 K/mm3 (0.9-3.2); Lymphocytes Percent Auto 18.2 % (18.3-44.2); Mean Corpuscular HGB Conc 33.4 g/dl (32-36); Mean Corpuscular Hemoglobin 30.2 pg (26-34); Mean Corpuscular Volume 90.3 fl (80-100); Mean Platelet Volume 9.4 fl (7.4-10.4); Monocytes Absolute Auto 0.7 K/mm3 (0.1-0.6); Monocytes Percent Auto 9.2 % (2.6-8.5); Neutrophils Absolute Auto 4.9 K/mm3 (1.3-6.7); Neutrophils Percent Auto 68.8 % (45.5-73.1); Platelet Count Result 312 k/mm3 (150-375); Red Blood Count 4.87 M/mm3 (4.2-5.4); Red Cell Distribution Width 14.4 % (11.5-14.5); White Blood Count 7.1 K/mm3 (4.5-10.0)
--- NOTE | 2024-04-14 12:40 | PCRCNOTE ---
arrived to draw pt ABG at 1238, pt not in room, will draw as soon as pt returns
[2024-04-14 12:48] LABS: Prothrombin Time 13.8 Seconds (11.1-14.7)
[2024-04-14 12:49] LABS: Partial Thromboplastin Time 24.9 Seconds (22.3-36.8)
[2024-04-14 12:51] LABS: Alanine Aminotransferase 20 U/L (6-35); Albumin Level 4.5 g/dL (3.5-5.1); Alkaline Phosphatase 73 U/L (38-126); Anion Gap 10 mmol/L (4-12); Aspartate Amino Transferase 35 U/L (14-36); Bilirubin,Total 0.7 mg/dL (0.2-1.3); Blood Urea Nitrogen 13 mg/dL (7-17); Calcium 8.9 mg/dL (8.4-10.2); Carbon Dioxide 31 mmol/L (22-30); Chloride 97 mmol/L (98-107); Estimated Glomerular Filt Rate > 60; Glucose 163 mg/dL (65-110); Potassium 3.8 mmol/L (3.4-5.0); Sodium 138 mmol/L (137-145)
[2024-04-14 13:02] LABS: Troponin I < 0.012 ng/mL (0.000-0.034)
[2024-04-14 13:03] LABS: Alveolar/Arterial O2 Gradient 24.7 mmHg; Base Excess ABG 0.8 mEq/l (+/-2.0); Carboxyhemoglobin 0.6 % THb (0-2.0); Fractional Inspired Oxygen 21 %; HCO3 ABG 26.4 mEq/l (22.0-26.0); Methemoglobin ABG 0.2 %THb (0-1.5); Oxygen Content ABG 19.7 %vol (16.0-22.0); Oxygen Saturation ABG 93.7 % (95.0-100.0); Oxyhemoglobin 93.4 % THb (90.0-100.0); PCO2 ABG 45.9 mmHg (35.0-45.0); PO2 ABG 70.1 mmHg (80.0-100.0); PO2 FiO2 Ratio Arterial Blood 3.34 %; Reduced Hemoglobin 5.8 %THb (0-5.0); pH ABG 7.378 (7.350-7.450)
[2024-04-14 13:04] LABS: Device ROOM AIR; Modified Allen's Test Pass; Site Drawn RIGHT RADIAL
[2024-04-14 13:13] LABS: Influenza A QL RT-PCR Negative (Negative); Influenza B QL RT-PCR Negative (Negative); RSV RNA, RT-PCR Negative (Negative); SARS-CoV-2 RNA PCR Negative (Negative)
[2024-04-14 14:03] LABS: Add Urine Microscopic? NO; Appearance Urine Clear (Clear); Bilirubin Urine Negative (Negative); Blood Urine Negative (Negative); Color Urine Yellow (Yellow); Glucose Urine UA Negative (Negative); Ketones Urine Negative (Negative); Leukocyte Esterase Ur Negative LEU/UL (Negative); Nitrate Urine Negative (Negative); Protein Urine Negative (Negative); Specific Grav Ur 1.038 (1.001-1.035); pH Urine 5.5 (5.0-9.0)
--- NOTE | 2024-04-14 14:04 | PC.NURSE ---
attempts made to gain iv access, ultrasound iv contacted to get a line.
[2024-04-14] MEDS: ACETAMINOPHEN 325 MG TABLET 650 MG PO (14:31)
[2024-04-14] MEDS: SODIUM CHLORIDE 0.9% IV 1,000 ML 999 ML IV CONT (14:32)
--- NOTE | 2024-04-14 15:54 | ED.SOB ---
HPI - SOB/Dyspnea General Chief Complaint: Shortness of Breath/Dyspnea Stated Complaint: short of breath, leg pain Time Seen by Provider: 04/14/24 12:01 History of Present Illness HPI Narrative: Patient is a 78-year-old female who presents the ER with her son for multiple complaints. Reports chronic shortness of breath. she also reports chronic chest discomfort. Cannot describe aggravating or alleviating factors for either issue. She also reports chronic abdominal pain that is associated with diarrhea. Diarrhea gets worse when she eats. Son reports patient has not been eating for the last 4 days. No known fevers or chills or sweats. There have increased concern for UTI though she has not been having burning urination. Patient reports body aches. Has not tried any pain medication. Related Data Allergies Allergy/AdvReac Type Severity Reaction Status Date / Time duloxetine Allergy Severe Swelling Verified 05/21/23 13:52 enalapril Allergy Unknown Unknown Verified 05/21/23 13:52 erythromycin base Allergy Unknown Rash Verified 05/21/23 13:52 Sulfa (Sulfonamide Allergy Unknown Unknown Verified 05/21/23 13:52 Antibiotics) sulfanilamide Allergy Unknown Unknown Verified 05/21/23 13:52 venlafaxine AdvReac Unknown Other Verified 05/21/23 13:52 Review of Systems Review of Systems: All systems reviewed & are unremarkable except as noted in HPI and below Constitutional: Constitutional: Reports fatigue, Denies fever(s) and Reports weakness ENT: Reports system reviewed and no additional complaints, except as documented Cardiovascular: Cardiovascular: Reports no additional cardiovascular complaints Respiratory: Respiratory: Reports no additional respiratory complaints Gastrointestinal: Gastrointestinal: Reports abdominal pain, Reports diarrhea, Denies nausea and Denies vomiting Musculoskeletal: Musculoskeletal: Reports myalgias, Denies arthralgias and Denies joint swelling [facility] Past Medical History Medical History Anxiety Chronic abdominal pain Diverticulitis Fibromyalgia Hypertension Surgical History Surgical History History of colostomy History of colostomy reversal Family History Family History Mother Hypertension Family history of osteoarthritis Cerebrovascular accident Family history of Alzheimer's disease Father Family history of osteoarthritis Family history of diabetes mellitus in first degree relative Other Family history of arthritis Family history of cardiovascular disease Social History Social History Smoking status: Never smoker Alcohol intake: never Gender identity (if verbalized by the patient): Female Exam Narrative: GENERAL: Well-appearing, well-nourished, and in no acute distress. HEAD: Normocephalic, atraumatic. ENT: Mucous membranes moist. CHEST: Clear to auscultation. No respiratory distress. HEART: Regular rate and rhythm. Normal peripheral pulses. ABDOMEN: Soft, nontender, nondistended. EXTREMITIES: Normal range of motion. No edema. SKIN: Warm, dry, no rash. NEURO: Alert and oriented x3. PSYCH: Normal mood and affect. Course Course Emergency Course: Patient resting comfortably. Received IV fluid. Lab work including CMP/ CBC unremarkable. Urinalysis without infection. ABG shows no hypercapnia. Viral panel negative. CT scan abdomen pelvis shows no acute issue. Chest x-ray without pneumonia. Patient appropriate for discharge home feels comfortable with this plan. Vital Signs Vital signs: Vital Signs Temperature 97.9 F 04/14/24 10:32 Pulse Rate 70 04/14/24 10:32 Respiratory Rate 12 04/14/24 10:32 Blood Pressure 147/79 H 04/14/24 10:32 Pulse Oximetry 95 04/14/24 10:32 Temperature 98.7 F
== END 2024-04-14 16:35 | disposition home or self-care (01) ==
PROVIDERS: Emergency Provider Emergency Medicine; PCP Family Medicine Sports Medicine
DX: R53.1 Weakness (principal); I10 Essential (primary) hypertension; Z20.822 Contact with and (suspected) exposure to COVID-19
CPT/HCPCS: 36415; 36600; 71046; 74177; 80053; 81003; 82375; 82805; 83050; 84484; 85025; 85610; 85730; 87637; 93005; 96360; 96361; 99284; A9270; J7030; Q9967